=== PATIENT | male | born 1980 | race Asian ===

== ENCOUNTER → 2020-08-09 | Outpatient (CLI) | payer OTHER ==
[2020-08-10 08:38] LABS: RUBELLA AB IGG-REFLAB 3.16 index (Immune >0.99)
== END | disposition home or self-care (01) ==
LOC: LABMN 13:58
PROVIDERS: ATTEND Internal Medicine
DX: Z02.1 Encounter for pre-employment examination (principal)
CPT/HCPCS: 86706; 86735; 86762; 86765; 86787

== ENCOUNTER 2020-11-18 13:52 | Emergency (ER) | payer OTHER ==
[~2020-11-18] VITALS: Ht 165.1 cm; Wt 80.0 kg
[2020-11-18 15:50] LABS: BASOPHILS % (AUTO) 0.5 % (0.0-2.0); EOSINOPHILS % (AUTO) 1.5 % (1.0-6.0); HEMATOCRIT 47.1 % (41-53); HEMOGLOBIN 15.8 g/dL (13.5-17.5); LYMPHOCYTES # (AUTO) 1.9 K/uL (1.0-4.8); LYMPHOCYTES % (AUTO) 24.1 % (22.0-44.0); MEAN CORPUSCULAR HEMOGLOBIN 27.8 pg (26.0-34.0); MEAN CORPUSCULAR HGB CONC 33.5 G/dL (31.0-37.0); MEAN CORPUSCULAR VOLUME 83 fL (80-100); MONOCYTES # (AUTO) 0.4 K/uL (0.1-1.0); MONOCYTES % (AUTO) 5.1 % (2.0-9.0); NEUTROPHILS # (AUTO) 5.5 K/uL (1.8-7.7); NEUTROPHILS % (AUTO) 68.8 % (40.0-70.0); PLATELET COUNT (AUTO) 278 K/uL (150-450); RED BLOOD CELL COUNT(AUTO) 5.68 MIL/uL (4.50-5.90); RED CELL DISTRIBUTION WIDTH 13.5 % (11.5-14.5)
[2020-11-18 16:02] LABS: ANION GAP 11 mmol/L (8-16); CALCIUM, TOTAL 9.4 mg/dL (8.8-10.5); CARBON DIOXIDE 29 mmol/L (22-29); CHLORIDE 103 mmol/L (98-107); CREATININE 0.84 mg/dL (0.60-1.30); GLOMERULAR FILTR. RATE CALC > 60 mL/min (>60); GLUCOSE,RANDOM 98 mg/dL (70-110); POTASSIUM 4.1 mmol/L (3.5-5.1); SODIUM SERUM 143 mmol/L (136-145); UREA NITROGEN, BLOOD 13 mg/dL (7-18)
[2020-11-18 16:03] LABS: APPEARANCE,URINE CLEAR (CLEAR); BILIRUBIN,URINE NEGATIVE (NEGATIVE); GLUCOSE, URINE (UA) NEGATIVE (NEGATIVE); KETONES,URINE NEGATIVE (NEGATIVE); LEUKOCYTE ESTERASE ,URINE NEGATIVE (NEGATIVE); NITRATE,URINE NEGATIVE (NEGATIVE); OCCULT BLOOD,URINE NEGATIVE (NEGATIVE); PROTEIN,URINE NEGATIVE (NEGATIVE); UROBILINOGEN,URINE 0.2 mg/dL (<=1.0)
[2020-11-18 16:09] LABS: ALANINE AMINOTRANSFERASE 37 U/L (12-78); ALBUMIN 4.6 g/dL (3.4-5.0); ALKALINE PHOSPHATASE 90 U/L (46-116); ASPARTATE AMINOTRANSFERASE 20 U/L (15-37); BILIRUBIN,TOTAL 0.4 mg/dL (0.1-1.0); TOTAL PROTEIN, SERUM 9.3 g/dL (6.4-8.2)
[2020-11-18] MEDS ORDERED: KETOROLAC TROMETHAMINE 30 MG/ML VIAL IVP ONE (16:15)
[2020-11-18] MEDS ORDERED: SODIUM CHLORIDE 0.9% 1,000 ML IV ONE (16:15)
[2020-11-18 16:26] LABS: BACTERIA,URINE None Seen /HPF (None Seen); RBC,URINE None Seen /HPF (0-2); WBC,URINE None Seen /HPF (0-5)
[2020-11-18 18:15] VITALS: BP 138/69
== END 2020-11-18 18:18 | disposition home or self-care (01) ==
LOC: EMS 13:52
DX: R10.9 Unspecified abdominal pain (principal); I10 Essential (primary) hypertension; Z91.010 Allergy to peanuts
CPT/HCPCS: 36415; 74176; 80053; 81001; 85025; 96361; 96374; 99284; J1885; J7030

== ENCOUNTER 2021-04-17 00:04 | Emergency (ER) | payer OTHER ==
[~2021-04-17] VITALS: Ht 165.1 cm; Wt 79.5 kg
[2021-04-17] MEDS ORDERED: AMLO-257 PO (00:42)
[2021-04-17] MEDS ORDERED: ATOR20TA86 PO (00:42)
[2021-04-17 01:59] LABS: BILIRUBIN,DIRECT 0.1 mg/dL (0.00-0.20); BILIRUBIN,TOTAL 0.2 mg/dL (0.1-1.0)
[2021-04-17 02:08] VITALS: BP 119/75
[2021-04-18 05:07] LABS: HEPATITIS C AB (EIA) <0.1 s/co ratio (0.0-0.9); HIV 1-2 SCREEN 4TH GEN W/RFLX Non Reactive (Non Reactive)
== END 2021-04-17 02:22 | disposition home or self-care (01) ==
LOC: EMS 00:05
DX: Z77.21 Contact with and (suspected) exposure to potentially hazardous body fluids (principal); I10 Essential (primary) hypertension; E78.00 Pure hypercholesterolemia, unspecified; Z91.010 Allergy to peanuts
CPT/HCPCS: 80074; 80076; 86692; 86706; 86708; 86803; 87340; 87389; 99283

== ENCOUNTER 2021-04-24 17:40 | Emergency (ER) | payer OTHER ==
[~2021-04-24] VITALS: Ht 165.1 cm; Wt 79.5 kg
[~2021-04-24 17:40] MED LIST: AMLO-257 PO; ATOR20TA86 PO
[2021-04-24] MEDS ORDERED: IBUPROFEN 600 MG TABLET PO ONE (18:30)
[2021-04-24 20:18] VITALS: BP 115/76
== END 2021-04-24 20:21 | disposition home or self-care (01) ==
LOC: EMS 17:40
DX: S00.83XA Contusion of other part of head, initial encounter (principal); Y04.0XXA Assault by unarmed brawl or fight, initial encounter; Y93.89 Activity, other specified; Y92.89 Other specified places as the place of occurrence of the external cause; Y99.0 Civilian activity done for income or pay
CPT/HCPCS: 70140; 99283